=== PATIENT | male | born 1990 | race Caucasian/White ===

== ENCOUNTER 2016-06-20 14:16 | Emergency (ER) | payer OTHER ==
[2016-06-20 14:59] LABS: HEMOGLOBIN 15.8 gm/dl (14.0-17.5); RED BLOOD COUNT 5.47 M/UL (4.20-5.50); WHITE BLOOD COUNT 7.3 K/UL (4.5-11.0)
[2016-06-20 16:07] LABS: BUN/CREATININE RATIO 10 (0-10)
== END 2016-06-20 21:16 | disposition home or self-care (01) ==
LOC: ER1 14:16
PROVIDERS: Emergency Medicine
DX: R55 Syncope and collapse (principal)
CPT/HCPCS: 36415; 70450; 71010; 80053; 82550; 82553; 83874; 84484; 85025; 93005; 99284

== ENCOUNTER 2021-07-24 19:46 | Emergency (ER) | payer MEDICAID ==
[~2021-07-24 19:46] MED LIST: BENTYL 20MG TAB20 MG PO; FLEXERIL 10 MG10 MG PO; LODINE CAP 300300 MG PO; ZOFRAN ODT 4 MG4 MG SL; ZOFRAN4 MG PO
[2021-07-24 20:16] LABS: HEMOGLOBIN 15.5 gm/dl (14.0-17.5); RED BLOOD COUNT 5.3 M/UL (4.20-5.50); WHITE BLOOD COUNT 12.5 K/UL (4.5-11.0)
[2021-07-24 20:46] LABS: BUN/CREATININE RATIO 8 (0-10)
[2021-07-24] MEDS ORDERED: ONDANSETRON ODT4 MG SL (21:52)
== END 2021-07-24 22:03 | disposition home or self-care (01) ==
LOC: ER1 19:46
PROVIDERS: Physician Assistant
DX: K52.9 Noninfective gastroenteritis and colitis, unspecified (principal)
CPT/HCPCS: 80053; 83690; 85025; 96374; 99284; J2405; Q9967

== ENCOUNTER → 2021-08-31 | Day surgery (SDC) | payer OTHER ==
[~2021-08-31] MED LIST changes: +ONDANSETRON ODT4 MG SL
== END | disposition home or self-care (01) ==
LOC: OR 08:48
DX: K21.00 Gastro-esophageal reflux disease with esophagitis, without bleeding (principal); K29.70 Gastritis, unspecified, without bleeding; K29.80 Duodenitis without bleeding; K52.9 Noninfective gastroenteritis and colitis, unspecified; E66.9 Obesity, unspecified; Z68.32 Body mass index [BMI] 32.0-32.9, adult
CPT/HCPCS: J2001; J2704; J7040